=== PATIENT | male | born 1965 | race Caucasian/White ===

== ENCOUNTER 2016-09-21 21:12 | Observation (INO) | payer BC, OTHER ==
--- NOTE | 2016-09-21 21:41 | ERNOTE ---
Abdominal HPI - Narrative Date of Service: 09/21/16 - General Chief Complaint: Abdominal Pain Time Seen by Provider: 09/21/16 21:39 Source: patient, family - Immun/Allergies/Home Medications Immunizatons: IMMUNIZATION HX Immunizations Up to Date Yes Allergies/Adverse Reactions: Allergies No Known Allergies Allergy (Unverified 09/21/16 21:28) Home Medications: HOME MEDICATIONS Aspirin 81 mg PO HS 09/21/16 [Last Taken Unknown] Tadalafil [Cialis] 2.5 mg PO 09/21/16 [Last Taken Unknown] - History of Present Illness Narrative: ABDOMINAL PAIN FOR A WEEK WITH NO KNOWN FEVER BUT C/O CHILLS. NO C/O OF VOMITING OR DIARRHEA. DENIES CONSTIPATION SAYING HE HAD BM YESTERDAY. DESPITE PAIN HE HAS BEEN EATING HAVING NELI'S LAST ABOUT NOON. DENIES NEW MEDS THOUGH ADMITS USING DRUGS , METH AND BEER , BUT SAYS NOT TODAY. NO HX OF ANY ABDOMINAL SURGERIES. 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 HE SAYS HE CAN NOT LOCALIZE THE ABDOMINAL PAIN BECAUSE IT IS "ALL OVER". NO TRAUMA HX. Review of Systems - Review of Systems Constitutional: Present: See HPI Gastrointestinal/Abdominal: Present: See HPI, abdominal pain Genitourinary: Present: no symptoms reported All Other Systems: All systems neg except as marked - Patient's Past Medical History Patient History - Medical: Other - ED Patient History - Cardiac/Respiratory: Hyperlipidemia Patient History - Cancer: No Hx of Cancer Patient History - Surgical Procedures: Total Knee Replacement, Other - RIGHT FEMORAL BYPASS GRAFT. , Orthopedic - CLAVICLE ORIF Patient History - Other: None - Social History Living Situations: home Abuse History: No History of abuse Psych History: No pertinent hx Smoking Status: Current every day smoker Have you smoked in the past 12 months: Yes Do you dip or chew tobacco: No Alcohol Use: occasionally Drug Use: marijuana, meth - Immunizations Immunizations Up to Date: Yes Physical Exam - Physical Exam General Appearance: Present: wd/wn, alert, moderate distress - FLUSHED , BUT NO FEVER. SOMEWHAT AGGITATED AND ARGUMENTATIVE. Respiratory: Present: no respiratory distress, normal breath sounds, no accessory muscle use, chest nontender, lungs clear Cardiovascular/Chest: Present: regular rate, rhythm, no murmur, normal peripheral pulses Peripheral Pulses: N=norm/S=strong/W=weak/B=bound/A=absent: Dorsalis-pedis (R): Normal, Dorsalis-pedis (L): Normal Gastrointestinal/Abdominal: Present: normal bowel sounds, nondistended, no organomegaly, tenderness - MILD TENDERNESS THROUGH OUT BUT WITH SOME REBOUND IN BOTH LOWER QUADRANTS AND MORE ON R >L Back Exam: Present: normal inspection, no CVA tenderness Neurological Exam: Present: alert, oriented Skin Exam: Present: normal color, warm/dry ED Progress - Results and Orders Patient's Lab Results:: I have reviewed the patient's lab results. Results and Orders: ELEVATED WBC = 13.2, CRP= 9+ - Vital Signs Vital Signs: Vital Signs 09/21/16 21:21 Temperature 37.5 C Pulse Rate 82 Respiratory 20 Rate Blood Pressure 155/95 O2 Sat by Pulse 100 Oximetry - CT/Ultrasound CT/Ultrasound Narrative: D/W ARGUS RADIOLOGIST WHO DX'D ACUTE APPENDICITIS WITH NO PERFORATION OR ABSCESS - Progress/Reassessment Chief Complaint: Abdominal Pain Progress:: Improved Progress Note-Subjective: 09/21/16 23:59 IMPROVED SOME BUT DX OF APPENDICITIS CONFIRMED WITH CT RESULTS - Transfer of Care Expected Disposition: Admit Plan - Plan Plan: D/W DR BLUE, SUGGEST WE CALL SURG. TEAM IN AND HE WILL OPERATE TONIGHT. I EXPLAINED TO THE PT AND HIS WHO UNDERSTAND. Departure - Departure Clinical Impression: Abdominal pain Qualifiers: Abdominal location: lower abdomen, unspecified Qualified Code(s): R10.30 - Lower abdominal pain, unspecified Appendicitis Qualifiers: Appendicitis type: acute appendicitis Acute appendicitis type: unspecified acute appendicitis type Qualified Code(s): K35.80 - Unspecified acute appendicitis Disposition: [facility] Condition: Fair Referrals: Christophe Lopez MD [Primary Care Provider] -
[2016-09-21 21:54] LABS: Hematocrit 42.3 % (42.0-52.0); Hemoglobin 14.3 gm/dL (13.5-18.0); Mean Cell Volume 87.6 fl (78-100); Mean Corpuscular Hemoglobin 29.6 pg (27-31); Mean Corpuscular Hgb Conc 33.8 g/dl (32-36); Mean Platelet Volume 9.3 fl (6.0-9.5); Neutrophil # 9.3 K/mm3 (1.3-6.0); Platelet Count 357 K/mm3 (150-450); Red Blood Count 4.83 M/mm3 (4.7-6.0); Red Cell Distribution Width 12.2 % (11.5-14.0); White Blood Count 13.2 K/mm3 (4.0-10.5)
[2016-09-21 21:57] LABS: Total Cells Counted 100
[2016-09-21 22:06] LABS: Albumin * 3.7 gm/dl (3.4-5.0); Anion Gap 13.9 mmol/L (6.8-13.8); Bilirubin, Total 0.5 mg/dL (0.0-1.1); Calcium * 9.1 mg/dL (7.9-10.9); Carbon Dioxide 27.8 mmol/L (24-32.6); Potassium 3.7 mmol/L (3.4-4.6); Total Protein 7.7 gm/dL (6.2-8.2)
--- OUTSIDE RECORDS SUMMARY | 2016-09-21 22:10 | XMS REPORT | Continuity of Care Document ---
:1965 Author Organization [facility] ([facility]) Address [address] [place] [address] Phone [phone] Care Team Providers Name Role Phone Jack Magaña Primary Care Provider [phone] Source Comments This disclosure is being made pursuant to the Care Everywhere program, applicable federal and state laws, and may not contain all informaitonavailable regarding this patient.[facility] ([facility]) Active Allergies and Adverse Reactions No Active Allergies Current Medications Not on file Active Problems Problem Noted Date Unspecified part of closed fracture of clavicle 08/18/2007 Aortic aneurysm of unspecified site without mention of rupture 08/05/2007 Immunizations Name Dates Previously Given Next Due Td, adult unspecified 08/05/2007 Social History Tobacco Use Types Packs/Day Years Used Date Never Assessed Last Filed Vital Signs Vital Sign Reading Time Taken Blood Pressure 138/86 08/31/2007 8:00 AM CDT Pulse 86 08/31/2007 8:00 AM CDT Temperature 37.3 C (99.14 F) 08/31/2007 8:00 AM CDT Respiratory Rate 18 08/31/2007 8:00 AM CDT Height 1.88 m (6' 2") 08/30/2007 11:58 AM CDT Weight 110.678 kg (244 lb) 08/30/2007 11:58 AM CDT Body Mass Index 31.31 08/30/2007 11:58 AM CDT Oxygen Saturation - - Plan of Care Health Maintenance Due Date Last Done Comments HCV Screening 1965 Hepatitis B Vaccine (1 of 3 - Primary Series) 1965 Tdap Vaccine 11/19/1974 Lipid Disorder Screening 11/19/1981 MMR Vaccine 11/19/1981 Colonoscopy 11/19/2013 Prostate Cancer Screening 11/19/2013 Influenza Vaccine: Seasonal (#1) 12/24/2015 Td Vaccine 08/04/2017 08/05/2007 Results from Last 3 Months Not on file
[2016-09-21 22:20] LABS: Band 4 % (0-2.0); Lymphocyte 14 % (20-51); Monocyte 16 % (0-9); Neutrophil 66 % (42-75); Neutrophil # 8.7 K/mm3 (1.3-6.0); Platelet Estimate Normal (NORMAL); RBC Morphology Normal (NORMAL)
[2016-09-21] MEDS ORDERED: NORMAL SALINE 1,000 ML IV ONE (22:34)
[2016-09-21] MEDS ORDERED: KETOROLAC TROMETHAMINE 30 MG/ML VIAL IV ONE (22:34)
[2016-09-21] MEDS ORDERED: KETOROLAC TROMETHAMINE 30 MG/ML VIAL ONE (22:45)
[2016-09-22] MEDS ORDERED: RINGERS SOLUTION,LACTATED 1,000 ML IV PRN ×2 (00:14→03:00)
--- OUTSIDE RECORDS SUMMARY | 2016-09-22 00:22 | XMS REPORT | Continuity of Care Document ---
:1965 Author Organization [facility] ([facility]) Address [address] [place] [address] Phone [phone] Care Team Providers Name Role Phone Jack Magaña Primary Care Provider [phone] Source Comments This disclosure is being made pursuant to the Care Everywhere program, applicable federal and state laws, and may not contain all informaitonavailable regarding this patient.[facility] ([facility]) Active Allergies and Adverse Reactions No [...]
[2016-09-22] MEDS ORDERED: CEFOXITIN SODIUM 2 GM in DEXTROSE 5 % IN WATER 100 ML IV ONE ×2 (00:36)
--- NOTE | 2016-09-22 00:48 | HP ---
Chief Complaint - Chief Complaint Date of Service: 09/22/16 Time of Service: 00:38 Chief Complaint: abdominal pain History of Present Illness: He has had intermittent abdominal pain earlier this week, but got bad today and he had to crawl to bathroom. CT in ER shows acute appendicitis. - Patient's Past Medical History Patient History - Medical: Other - ED, PAD Patient History - Cardiac/Respiratory: Hyperlipidemia Patient History - Cancer: No Hx of Cancer Patient History - Surgical Procedures: Total Knee Replacement, Other - RIGHT FEMORAL BYPASS GRAFT. , Orthopedic - CLAVICLE ORIF Patient History - Other: None - Family History Family History:: no untoward family reactions to anesthesia, no familial bleeding tendencies - Family History Brother Family History - Medical: Other - perforated diverticulitis - Social History Living Situations: home Abuse History: No History of abuse Psych History: No pertinent hx Smoking Status: Current every day smoker Have you smoked in the past 12 months: Yes Do you dip or chew tobacco: No Alcohol Use: occasionally Drug Use: marijuana, meth - Immunizations Immunizations Up to Date: Yes Review Of Systems (GEN) - Review of Systems Generalized/Overall Review: Present: Diaphoresis. Absent: Chills, Fever EENTM: Present: No Symptoms Reported Respiratory: Present: No Symptoms Reported. Absent: Cough, Shortness of Breath Cardiac: Present: No Symptoms Reported. Absent: Chest Pain Abdominal: Present: Abdominal Pain. Absent: Nausea, Vomiting Genitourinary: Present: No Symptoms Reported Musculoskeletal: Present: No Symptoms Reported Neurological: Present: No Symptoms Reported Skin: Present: No Symptoms Reported Immunizations: IMMUNIZATION HX Immunizations Up to Date Yes Allergies/Adverse Reactions: Allergies Allergy/AdvReac Type Severity Reaction Status Date / Time No Known Allergies Allergy Unverified 09/21/16 21:28 Home Medications: HOME MEDICATIONS Aspirin 81 mg PO HS 09/21/16 [Last Taken Unknown] Tadalafil [Cialis] 2.5 mg PO 09/21/16 [Last Taken Unknown] Exam - Exam Vital Signs: Vital Signs - Last Taken Temp 38.1 C H 09/21/16 23:35 Pulse 99 09/22/16 00:04 Resp 18 09/22/16 00:04 BP 164/97 09/22/16 00:04 Pulse Ox 94 09/22/16 00:04 Constitutional: Present: Alert, Oriented x3, Cooperative, Well nourished, Other - tremulous ENT Exam: Present: other - injected conjunctiva, coated tongue Eye Exam: bilateral eye: PERRL, EOMI, other - injected Neck: Present: full range of motion, normal inspection Back Exam: Present: no CVA tenderness Respiratory: Present: lungs clear, normal breath sounds Cardiovascular/Chest: Present: normal peripheral pulses, regular rate, rhythm, no murmur Peripheral Pulses: carotid (R): 4+, carotid (L): 4+, dorsalis-pedis (R): 4+, dorsalis-pedis (L): 4+ Abdomen: Present: other - tender RLQ with /Rectal: Present: External genitalia normal Extremity: Present: normal range of motion, normal inspection, other - healed right medial thigh incision Skin Exam: Present: diaphoresis Neurologic: Present: marshmallow runner II-XII nml as tested, normal cerebellar test, no motor/ sensory deficits Appearance: Present: appropriate appearance, appropriate insight Eye contact: Present: cooperative, good eye contact, other - anxious Thoughts: Present: normal thought pattern Diagnostic Studies: Abnormal Lab Results 09/21/16 09/21/16 09/21/16 Range/Units 21:50 21:50 21:50 WBC 13.2 H (4.0-10.5) K/mm3 Immature Gran % (Auto) 0.60 H (0.001-0.429) % Immature Gran # (Auto) 0.08 H (0.000-0.0310) K/mm3 Band Neuts % (Manual) 4 H (0-2.0) % Lymphocytes % 14.9 L (20-51) % Lymphocytes % (Manual) 14 L (20-51) % Monocytes % 12.9 H (0.0-9) % Monocytes % (Manual) 16 H (0-9) % Neutrophils # 9.3 H (1.3-6.0) K/mm3 Neutrophils # (Manual) 8.7 H (1.3-6.0) K/mm3 Monocytes # 1.7 H (0.0-1.0) k/mm3 Monocytes # (Manual) 2.1 H (0.0-1.0) k/mm3 Anion Gap 13.9 H (6.8-13.8) mmol/L Random Glucose 112 H (70-110) mg/dL C-Reactive Prot, Quant 9.8 H (0.0-0.9) mg/dL Laboratory Results WBC 13.2 K/mm3 (4.0-10.5) H 09/21/16 21:50 RBC 4.83 M/mm3 (4.7-6.0) 09/21/16 21:50 Hgb 14.3 gm/dL (13.5-18.0) 09/21/16 21:50 Hct 42.3 % (42.0-52.0) 09/21/16 21:50 MCV 87.6 fl (78-100) 09/21/16 21:50 MCH 29.6 pg (27-31) 09/21/16 21:50 MCHC 33.8 g/dl (32-36) 09/21/16 21:50 RDW 12.2 % (11.5-14.0) 09/21/16 21:50 Plt Count 357 K/mm3 (150-450) 09/21/16 21:50 MPV 9.3 fl (6.0-9.5) 09/21/16 21:50 Immature Gran % (Auto) 0.60 % (0.001-0.429) H 09/21/16 21:50 Immature Gran # (Auto) 0.08 K/mm3 (0.000-0.0310) H 09/21/16 21:50 Neutrophils % 70.0 % (42-75.0) 09/21/16 21:50 Neutrophils % (Manual) 66 % (42-75) 09/21/16 21:50 Band Neuts % (Manual) 4 % (0-2.0) H 09/21/16 21:50 Lymphocytes % 14.9 % (20-51) L 09/21/16 21:50 Lymphocytes % (Manual) 14 % (20-51) L 09/21/16 21:50 Monocytes % 12.9 % (0.0-9) H 09/21/16 21:50 Monocytes % (Manual) 16 % (0-9) H 09/21/16 21:50 Eosinophils % 1.4 % (0.0-3.0) 09/21/16 21:50 Basophils % 0.2 % (0.0-1.0) 09/21/16 21:50 Nucleated RBC % 0.0 k/mm3 (0-1) 09/21/16 21:50 Neutrophils # 9.3 K/mm3 (1.3-6.0) H 09/21/16 21:50 Neutrophils # (Manual) 8.7 K/mm3 (1.3-6.0) H 09/21/16 21:50 Lymphocytes # 2.0 k/mm3 (1.5-3.5) 09/21/16 21:50 Lymphocytes # (Manual) 1.8 k/mm3 (1.5-3.5) 09/21/16 21:50 Monocytes # 1.7 k/mm3 (0.0-1.0) H 09/21/16 21:50 Monocytes # (Manual) 2.1 k/mm3 (0.0-1.0) H 09/21/16 21:50 Eosinophils # 0.2 k/mm3 (0.0-0.7) 09/21/16 21:50 Absolute Basophils 0.0 k/mm3 (0.0-0.1) 09/21/16 21:50 Platelet Estimate Normal (NORMAL) 09/21/16 21:50 RBC Morphology Normal (NORMAL) 09/21/16 21:50 Sodium 137 mmol/L (132-142) 09/21/16 21:50 Plasma Sodium 137 mmol/L (130-142) 09/21/16 21:50 Potassium 3.7 mmol/L (3.4-4.6) 09/21/16 21:50 Chloride 99 mmol/L (97-106) 09/21/16 21:50 Carbon Dioxide 27.8 mmol/L (24-32.6) 09/21/16 21:50 Anion Gap 13.9 mmol/L (6.8-13.8) H 09/21/16 21:50 BUN 22 mg/dL (6-23) 09/21/16 21:50 Creatinine 1.05 mg/dL (0.4-1.4) 09/21/16 21:50 Est GFR (Non-Af Amer) 79 mL/min (60-130) D 09/21/16 21:50 BUN/Creatinine Ratio 21.0 (9.0-21.6) 09/21/16 21:50 Random Glucose 112 mg/dL (70-110) H 09/21/16 21:50 Calcium 9.1 mg/dL (7.9-10.9) 09/21/16 21:50 Calcium Adj for Albumin 9.0 mg/dL (8.4-10.2) 09/21/16 21:50 Total Bilirubin 0.5 mg/dL (0.0-1.1) 09/21/16 21:50 AST 24 U/L (0-48) 09/21/16 21:50 ALT 36 U/L (19-67) 09/21/16 21:50 Alkaline Phosphatase 73 U/L (50-170) 09/21/16 21:50 C-Reactive Prot, Quant 9.8 mg/dL (0.0-0.9) H 09/21/16 21:50 Total Protein 7.7 gm/dL (6.2-8.2) 09/21/16 21:50 Albumin 3.7 gm/dl (3.4-5.0) 09/21/16 21:50 Amylase 68 U/L (25-115) 09/21/16 21:50 Lipase 228 U/L (73-393) 09/21/16 21:50 CT shows acute appendicitis Assessment/Plan - Assessment/Plan (1) Appendicitis Assessment: Discussed appendicitis and appendectomy. Possible complications and expected course outlined. After interactive discussion his questions were answered to his apparent satisfaction and informed consent obtained. Chlorhexidine wipes, SCD's, IV Mefoxin. Problem: Acute Qualifiers: Appendicitis type: acute appendicitis Acute appendicitis type: unspecified acute appendicitis type Qualified Code(s): K35.80 - Unspecified acute appendicitis
--- OUTSIDE RECORDS SUMMARY | 2016-09-22 01:04 | XMS REPORT | Continuity of Care Document ---
:1965 Author Organization [facility] ([facility]) Address [address] [place] [address] Phone [phone] Care Team Providers Name Role Phone Jack Magaña Primary Care Provider [phone] Source Comments This disclosure is being made pursuant to the Care Everywhere program, applicable federal and state laws, and may not contain all informaitonavailable regarding this patient.[facility] ([facility]) Active Allergies and Adverse Reactions No [...]
[2016-09-22] MEDS ORDERED: RINGERS SOLUTION,LACTATED 1,000 ML IV ONE ×2 (01:05→02:52)
[2016-09-22] MEDS ORDERED: BUPIVACAINE HCL/EPINEPHRINE 50 ML VIAL IJ ONE ×2 (01:30)
[2016-09-22] MEDS ORDERED: MUPIROCIN 22 APPL TUBE TP ONE (01:49)
[2016-09-22] MEDS ORDERED: MORPHINE SULFATE 2 MG/ML DISP.SYRIN IV PRN (03:00)
[2016-09-22] MEDS ORDERED: ONDANSETRON HCL/PF 2 MG/ML VIAL IV PRN (03:00)
[2016-09-22] MEDS ORDERED: PANTOPRAZOLE SODIUM 40 MG in NORMAL SALINE 100 ML IV SCH (03:00)
[2016-09-22] MEDS: oxyCODONE HCL/ACETAMINOPHEN 1 TAB TABLET PO PRN ×2 (07:11→12:06)
[2016-09-22] MEDS: CEFOXITIN SODIUM 2 GM in DEXTROSE 5 % IN WATER 100 ML IV SCH ×4 (07:11→12:06)
--- NOTE | 2016-09-22 07:28 | OR ---
Operative Report - Dictated Report Narrative: OPERATIVE REPORT DATE OF OPERATION: 09/22/2016 PREOPERATIVE DIAGNOSIS: Acute appendicitis POSTOPERATIVE DIAGNOSIS: Severe acute appendicitis OPERATION: Laparoscopic appendectomy SURGEON: Jean Fox MD ANESTHESIA: Gen. endotracheal Brant Aguiar CRNA INDICATIONS FOR PROCEDURE: The patient is a 50-year-old male with an approximately one-week history of abdominal discomfort. The pain became much worse today. He presented to the emergency room where he was found to have elevated WBC and CT scan evidence of acute appendicitis. FINDINGS: Severe acute appendicitis NARRATIVE OF PROCEDURE: The patient was identified in the holding area, and prior to the administration of anesthetic a multidisciplinary timeout was observed. The patient was placed supine, SCDs were applied, and 2 g of intravenous Mefoxin administered. Gen. endotracheal anesthetic was administered. The patient's abdomen was prepped with Betadine solution and a generous operating field isolated with 4 sterile towels. The remainder the patient was covered with a sterile disposable drape. A transverse infraumbilical skin incision was made. Dissection was carried along the umbilical stalk until the fascia of the linea alba was encountered. This was incised. The peritoneum was then elevated and incised to allow entry into the abdomen under direct vision. A Dubois cannula was placed and the abdomen insufflated with CO2. The laparoscopic camera was introduced and the abdomen briefly explored. The upper abdomen was secured with omental fat. The bladder was seen to be markedly distended. The remainder of the abdominal organs were obscured by fat. Under direct vision 2 additional working ports were inserted through separate skin incisions, one suprapubically and one in the left lower quadrant. The apex of the cecum was grasped and retracted. The tip of an acutely inflamed appendix was seen inferior to the cecum. The appendix itself was lateral to the cecum and densely adherent to the posterolateral abdominal wall. The distal two thirds of the appendix could be liberated by blunt dissection. The proximal portion could not be liberated initially. The appendiceal base was located at the confluence of tenia. A window was created adjacent to the appendiceal base which was then transected with a laparoscopic HERMELINDA stapling device. The the stump of the appendix was seen to be gas and liquid tight and hemostatic. The appendix was grasped and elevated. The distal portion of the appendix was liberated as a separate fragment and parked in the right lower quadrant. The proximal portion of the appendix was then bluntly dissected free from the abdominal wall. The mesoappendix appeared hemostatic and the appendiceal stump was intact. The 2 portions of the appendix appendix were placed in an Endobag and parked in the right lower quadrant. The right lower quadrant and pelvis were irrigated with saline and suctioned clean. The smaller working ports were then withdrawn under direct vision to ensure entry site hemostasis. The appendix was withdrawn in conjunction with the Dubois cannula. The pneumoperitoneum was allowed to escape, and after receiving a correct sponge needle and instrument count attention was turned to closing the abdomen. The fascia and peritoneum were approximated with interrupted sutures of #1 Vicryl. Skin incisions were approximated with interrupted vertical mattress sutures of 4-0 nylon. The operative sites were washed and dried. Dressings of Bactroban ointment and large Band-Aids were applied to the small port sites. The umbilical incision was dressed with Bactroban ointment, 2 x 2, large Band-Aid and Medipore tape. The operative procedure was terminated at this point. The patient tolerated the anesthetic and procedure well without complication. There was no measurable blood loss. The appendix was submitted to pathology. 0.5% Marcaine with epinephrine was used for local anesthetic infiltration. The patient was transferred to the recovery room awake, extubated, and in stable condition. Reviewed and electronically signed
--- NOTE | 2016-09-22 11:38 | DS ---
(1) Appendicitis Problem: Acute Qualifiers: Appendicitis type: acute appendicitis Acute appendicitis type: unspecified acute appendicitis type Qualified Code(s): K35.80 - Unspecified acute appendicitis Description of Stay: Had uneventful laparoscopic appendectomy for severe acute appendicitis. VS remained normal. Initially refused admission, but consented to stay. Then demanded to leave by 12:30PM. Tolerated advanced diet. OOB independently. Dressings dry. Chlorhexidine wipes and pre-op IV Mefoxin. One additional dose post-op. SCD's and early ambulation. Procedures Performed: none - laparoscopic appendectomy Discharge Disposition: Home self care Disposition: Home self-care Condition: Good Discharge Activity: Activity as tolerated, No Lifting Discharge Diet: General/regular food Referrals: Christophe Lopez MD [Primary Care Provider] - Problem Oriented Discharge Instructions to Patient/Family: Laparoscopic Appendectomy, Adult, Laparoscopic Appendectomy, Adult, Care After, [id number] Additional Patient Instructions (free text): Follow up with Dr. Fox 09/29 at 3:45 Prescriptions (Any new or edited meds): oxyCODONE HCL/ACETAMINOPHEN [Percocet 5 MG/325 MG] 2 tab PO Q4H PRN #20 tablet PRN Reason: Moderate Pain Complete Home Medications List: Complete Home Medication List: Aspirin 81 mg PO HS 09/21/16 Tadalafil [Cialis] 2.5 mg PO DAILY 09/21/16 oxyCODONE HCL/ACETAMINOPHEN [Percocet 5 MG/325 MG] 2 tab PO Q4H PRN #20 tablet 09/22/16
[2016-09-22 11:46] VITALS: BP 138/81
== END 2016-09-22 13:03 | disposition home or self-care (01) ==
LOC: ER 21:12 → AMB 09-22 00:18 → MS 09-22 01:00
PROVIDERS: ADMIT Surgery; ATTEND Surgery
PROC: 0DTJ4ZZ Resection of Appendix, Percutaneous Endoscopic Approach (ICD-10-PCS; principal; 2016-09-22 01:30)
DX: K35.80 Unspecified acute appendicitis (principal)
CPT/HCPCS: 36415; 44970; 74176; 80053; 82150; 83690; 85025; 86140; 88304; 93005; 96374; 96375; 99284; G0378